=== PATIENT | male | born 1960 | race Caucasian/White ===

== ENCOUNTER → 2017-05-26 | Outpatient (CLI) | payer OTHER ==
[~2017-05-26] MED LIST: ASPI-589 PO; ATOR-24 PO; BENA-3 PO; GEMF600T3 PO; MULT-506 PO
[2017-05-26 14:24] LABS: ALBUMIN 4.8 gm/dl (3.4-5.0); ALT/SGPT 78 U/L (12-78); BLOOD UREA NITROGEN 14 mg/dl (7-18); CALCIUM 10.1 mg/dl (8.5-10.1); CARBON DIOXIDE 30 mmol/L (21-32); CREATININE 1.31 mg/dl (0.60-1.40); GLUCOSE 102 mg/dl (70-99); POTASSIUM 3.7 mmol/L (3.5-5.1); SODIUM 136 mmol/L (136-145)
[2017-05-26 14:31] LABS: ALKALINE PHOSPHATASE 118 U/L (45-117); AST/SGOT 37 U/L (15-37); TOTAL PROTEIN 8.9 gm/dl (6.4-8.2)
== END | disposition home or self-care (01) ==
LOC: C.LABBC 11:53
PROVIDERS: ATTEND Physician Assistant Medical
DX: E78.5 Hyperlipidemia, unspecified (principal); I10 Essential (primary) hypertension; Z11.59 Encounter for screening for other viral diseases

== ENCOUNTER → 2017-07-14 | Outpatient (CLI) | payer OTHER ==
[2017-07-14 15:02] LABS: ALBUMIN 4.3 gm/dl (3.4-5.0); ALT/SGPT 44 U/L (12-78); AST/SGOT 24 U/L (15-37); BLOOD UREA NITROGEN 18 mg/dl (7-18); CALCIUM 9.2 mg/dl (8.5-10.1); CARBON DIOXIDE 29 mmol/L (21-32); CREATININE 1.44 mg/dl (0.60-1.40); GLUCOSE 96 mg/dl (70-99); SODIUM 139 mmol/L (136-145)
[2017-07-14 15:05] LABS: ALKALINE PHOSPHATASE 103 U/L (45-117); TOTAL PROTEIN 8.2 gm/dl (6.4-8.2)
== END | disposition home or self-care (01) ==
LOC: C.LABBC 09:52
PROVIDERS: ATTEND Physician Assistant Medical
DX: I10 Essential (primary) hypertension (principal)

== ENCOUNTER → 2017-11-03 | Outpatient (CLI) | payer OTHER ==
[~2017-11-03] MED LIST changes: -GEMF600T3 PO; +GEMF600T5 PO
[2017-11-03 11:05] LABS: ALKALINE PHOSPHATASE 109 U/L (45-117); ALT/SGPT 53 U/L (12-78); AST/SGOT 28 U/L (15-37); BLOOD UREA NITROGEN 11 mg/dl (7-18); CALCIUM 9.1 mg/dl (8.5-10.1); CARBON DIOXIDE 26 mmol/L (21-32); CHOLESTEROL 291 mg/dl (0-200); CREATININE 1.31 mg/dl (0.60-1.40); GLUCOSE 105 mg/dl (70-99); POTASSIUM 4.1 mmol/L (3.5-5.1); SODIUM 137 mmol/L (136-145); TOTAL PROTEIN 8.2 gm/dl (6.4-8.2)
[2017-11-03 12:37] LABS: HEMOGLOBIN A1C 5.7 % (4.5-5.6)
== END | disposition home or self-care (01) ==
LOC: C.LABBC 08:59
PROVIDERS: ATTEND Physician Assistant Medical
DX: E78.5 Hyperlipidemia, unspecified (principal); R73.9 Hyperglycemia, unspecified

== ENCOUNTER 2023-02-20 11:50 | Inpatient (IN) ==
[2023-02-20 13:15] LABS: Basophils # (auto) 0.08 K/uL (0.00-0.20); Basophils % (auto) 0.5 %; Eosinophils # (auto) 0.02 K/uL (0.00-0.50); Eosinophils % (auto) 0.1 %; Hematocrit (blood only) 45.2 % (42.0-52.0); Hemoglobin 15.1 g/dl (14.0-18.0); Immature Granulocytes # (auto) 0.09 K/uL (0.01-0.20); Immature Granulocytes % (auto) 0.6 %; Lymphocytes % (auto) 13.5 %; Mean Corpuscular Hemoglobin 27.5 pg (25.0-34.0); Mean Corpuscular Hgb Conc 33.4 g/dL (32.0-36.0); Mean Corpuscular Volume 82.2 fL (80.0-100.0); Mean Platelet Volume 10.1 fL (9.4-12.4); Monocytes # (auto) 0.56 K/uL (0.11-0.59); Monocytes % (auto) 3.6 %; Neutrophils # (auto) 12.76 K/uL (1.40-6.50); Neutrophils % (auto) 81.7 %; Platelet Count 185 K/uL (130-400); RDW Coefficient of Variation 13.7 % (11.5-14.5); RDW Standard Deviation 41.4 fL (36.4-46.3); White Blood Count 15.61 K/ul (4.8-10.8)
[2023-02-20 13:27] LABS: Albumin Globulin Ratio 1.1 (0.9-2); BUN Creatinine Ratio 20.5 (10-20); Bilirubin,Total 1.7 mg/dl (0.2-1.0); Calcium 9.4 mg/dl (8.6-10.3); Creatinine Clr Calc Pharmacy 57.7 ml/min; Est GFR (African American) 52.3 ml/min; Est GFR (Non-African American) 45.2 ml/min; Globulin 3.7 gm/dl (2.5-4.0); Potassium 3.1 mmol/L (3.5-5.1); Total Protein 7.7 gm/dl (6.0-8.3)
[2023-02-20 13:57] LABS: Adenovirus PCR Not Detected (NotDetected); Bordetella parapertussis PCR Not Detected (NotDetected); Bordetella pertussis PCR Not Detected (NotDetected); Chlamydia pneumoniae PCR Not Detected (NotDetected); Coronavirus 229E PCR Not Detected (NotDetected); Coronavirus CoV-2 (COVID19)PCR Not Detected (NotDetected); Coronavirus HKU1 PCR Not Detected (NotDetected); Coronavirus NL63 PCR Not Detected (NotDetected); Coronavirus OC43PCR Not Detected (NotDetected); Human Metapneumovirus PCR Not Detected (NotDetected); Influenza A PCR Not Detected (NotDetected); Influenza B PCR Not Detected (NotDetected); Mycoplasma pneumoniae PCR Not Detected (NotDetected); Parainfluenza Virus 1 PCR Not Detected (NotDetected); Parainfluenza Virus 2 PCR Not Detected (NotDetected); Parainfluenza Virus 3 PCR Not Detected (NotDetected); Parainfluenza Virus 4 PCR Not Detected (NotDetected); Respiratory Syncytial VirusPCR Not Detected (NotDetected); Rhinovirus/Enterovirus PCR Not Detected (NotDetected)
--- NOTE | 2023-02-20 14:33 | Emergency Department Note ---
Impression & Plan Transaminitis, Sepsis, CKD (chronic kidney disease), Body aches ED Provider Note NAME: CINDY MORRELL AGE: 62 SEX: M ARRIVES VIA: Walk-In INFORMANT: Patient ED PROVIDER(S): Galdino Fenton MD CHIEF COMPLAINT: Fevers, body aches, nausea vomiting PLAN: Disposition: Admit MEDICAL DECISION MAKING: The patient is a pleasant 62-year-old male with past medical history of hypertension, hyperlipidemia, prediabetes, obesity, and CKD who presents to the emergency department via walk-in accompanied by his , referred from his PCP office for hypotension in the setting of the patient experiencing approximately 11 days of fever, headache, body aches, chills, and nausea. Denies any cough, recent travel, or other sick contacts. Patient had 1 bout of vomiting on Monday. Also been having some diarrhea on and off. He reports urine has been orange in color. He has tried Advil for fever and Pepcid for the nausea. His symptoms have not been getting any better over his last 11 days. Negative home COVID test. Has not been taking his blood pressure meds in over a week. Denies any chest pain or abdominal pain. Denies any tick bites or open wounds on his body. The patient was evaluated in the C pod ante-room following initial testing performed from the C pod Sub-waiting room. On my evaluation, the patient is afebrile however with heart rate in the 100s and blood pressure otherwise stable. He appears clinically dry. Abdomen is benign. EKG without overt acute ischemia. CXR negative for acute cardiopulmonary process per my personal preliminary review/interpretation. WBC 15.6 with neutrophil predominance so no left shift. H/H within normal limits. Platelets 195, within normal limits. Lactic acid is 3.7 however chemistry without metabolic acidosis with bicarbonate of 25. Creatinine is 1.6, increased from recent dose similar to prior range values in setting of CKD. LFTs are elevated with bilirubin 1.7 and direct bilirubin 0.8 with alk phos 244 and AST and ALT 77 and 82, respectively. Lipase marginally above normal at 124. Procalcitonin is elevated at 2.7. Respiratory viral panel/[employer] was negative. Lyme screen was negative. Additional tickborne illness testing performed and is pending including peripheral smear. CT of the ab pelvis was performed and was negative for acute abnormalities per radiology interpretation. Further characterization of elevated bilirubin right upper quadrant ultrasound was ordered and is pending. Patient was provided with 2 L of normal saline with 30 cc/kg of IV fluids deferred given the patient's CKD. Patient does agree with plan for admission. Case was d/w Dr. Yates [facility] hospitalist who will evaluate the patient for admission. Further management including antibiotics per admitting team. Repeat lactic acid improved to 2.0. This patient was managed with the assistance of resident, Dr. Terry. I discussed the case with the resident, examined the patient, and confirm the findings and plan as documented in this note. Triage Nursing notes reviewed and agree them. Prior/external medical records reviewed Vital Signs: reviewed Differential diagnosis: Viral syndrome, otitis, pharyngitis, pneumonia, influenza, meningitis, urinary tract infection, sepsis, bacteremia, as well as other pathologies. ER treatment provided: See below. Diagnostics interpreted by me: ECG: Sinus tachycardia, 102 bpm, no ectopy, no overt ST elevation or depression, QTc 443, cures 96 Cardiac Monitoring: An order for continuous cardiac monitoring was placed and demonstrated Sinus tachycardia, 102 bpm, no ectopy, Laboratory studies: See below Imaging studies: See below Consultation(s): Case was d/w Dr. Yates [facility] hospitalist who will evaluate the patient for admission. HPI: The patient is a pleasant 62-year-old male with past medical history of hypertension, hyperlipidemia, prediabetes, obesity, and CKD who presents to the emergency department via walk-in accompanied by his , referred from his PCP office for hypotension in the setting of the patient experiencing approximately 11 days of fever, headache, body aches, chills, and nausea. Denies any cough, recent travel, or other sick contacts. Patient had 1 bout of vomiting on Monday. Also been having some diarrhea on and off. He reports urine has been orange in color. He has tried Advil for fever and Pepcid for the nausea. His symptoms have not been getting any better over his last 11 days. Negative home COVID test. Has not been taking his blood pressure meds in over a week. Denies any chest pain or abdominal pain. Denies any tick bites or open wounds on his body. ROS: See above HPI for pertinent positives & negatives. A total of 10 systems reviewed and were otherwise negative. VITALS:See Below PHYSICAL EXAMINATION: GENERAL: Awake, alert, fatigued-appearing, in no distress HENT: Normocephalic, atraumatic. Oropharynx with dry mucous membranes and otherwise unremarkable. EYES: Normal conjunctiva. Sclera non-icteric. NECK: Supple. No nuchal rigidity. FROM. No JVD. RESPIRATORY: Clear to auscultation. CARDIAC: Tachycardic rate, normal rhythm. Extremities warm and well perfused. Pulses equal. ABDOMEN: Soft, non-distended. No tenderness to palpation. No rebound or guarding. No masses. RECTAL: Deferred. MUSCULOSKELETAL: Chest examination reveals no tenderness. The back is symmetrical on inspection without obvious abnormality. There is no CVA tenderness to palpation. No joint edema. LOWER EXTREMITIES: Calves are equal size bilaterally and non-tender. No edema. No discoloration. NEURO: Normal sensorium. No sensory or motor deficits noted. SKIN: No rash or jaundice noted. ED COURSE: Critical Care: I have personally spent greater than 35 minutes of critical care time in the direct management of this patient. This includes bedside care, interpretation of diagnostic studies, and testing, discussion with consultants, patient, and family members, and other required patient management activities. This 35 minutes is in excess of all separately billable procedures. Galdino Fenton MD Past Med/Surg History Medical History Encounter for pre-operative examination History of colon polyps Sleep apnea MILD/NO DEVICE Sensorineural hearing loss (SNHL) of both ears CKD (chronic kidney disease) PT DENIES Hypertension Hyperlipidemia Erectile dysfunction Chronic throat clearing Allergic rhinitis Lentigines Surgical History Nausea and vomiting after administration of anesthetic agent History of colonoscopy 03/2021 repeat 5 yrs [place] teeth removed History of myringotomy History of tonsillectomy History of vasectomy History of shoulder surgery RT History of inguinal hernia repair Family History Father Hypertension Hyperlipidemia Type 2 diabetes mellitus Acute myocardial infarction Diabetes Grandmother Acute myocardial infarction Grandfather Cancer Mother Hypertension Brother Hypertension Other No family history of adverse response to anesthesia No family history of bleeding disorder Ovarian cancer Denies family history of Prostate cancer Myocardial infarction Breast cancer Colorectal cancer Stroke Social History Smoking Status: Never smoker Tobacco Type: Smokeless Tobacco (Dip or Chew) Second Hand Exposure: No; Do You Dip or Chew Tobacco: Yes; Hx Alcohol Use: Yes Alcohol type: beer Alcohol Intake Frequency Comment: weekends Hx Substance Use: No Preferred Language: Frisian Communication Ability: Effective Visual Impairment: Partially Limited Hearing Ability: Normal It Program Auditor Required: No Beliefs That Will Affect Care: None marital status: Current Living Situation: Spouse and Family Current Living Situation Comment: AND SON current occupational status: employed current occupation: Works at [employer] How many Children do You have: 2 Other Information That Helps Us Care for You: No Feels Safe at Home: Yes Safety Concerns: Feels Safe At This Time Childhood Exposure to Second-Hand Smoke: Yes caffeine: Yes (two cups of coffee daily ) Dental Care, Regularly: No Physical Activity Frequency: 3-4 Times per Week Physical Activity Frequency Comment: walks couple times a week Seatbelt Use: always Sunscreen Use: No Assistive Devices: None Allergies Allergies Allergy/AdvReac Type Severity Reaction Status Date / Time No Known Drug Allergies Allergy Verified 02/20/23 11:00 Home Meds Home Medications Medication Instructions Recorded Confirmed atorvastatin 40 mg tablet 40 mg PO QAM 08/10/22 02/20/23 Previous Rx's Medication Instructions Recorded benazepril 10 1 tab PO QAM #90 tabs 01/26/23 mg-hydrochlorothiazide 12.5 mg tablet sildenafil 100 mg tablet 100 mg PO ONCE PRN sexual activity 01/26/23 #10 tabs Results & Data (ED) Vital Signs Vital Signs - 24 hr 02/20/23 12:11 02/20/23 14:43 02/20/23 15:10 Temperature 36.6 C 36.6 C Temperature Source Temporal Artery Scan Oral Pulse Rate 102 H 128 H Pulse Rate [Bilateral] 115 H Respiratory Rate 20 30 H Respiratory Effort / Characteristics Non-Labored Respiratory Depth Normal Normal Blood Pressure 109/69 Blood Pressure [Right Arm] 149/97 H Blood Pressure Mean 82 Blood Pressure Mean [Right Arm] 114 Pulse Oximetry 97 98 Oxygen Delivery Method Room Air Room Air Sepsis Recent Fever Within 48 Hours No Sepsis New/Unexplained Change in Mental Status No Sepsis Action Taken by Nursing No Action Required 02/20/23 16:00 Temperature 37.0 C Temperature Source Oral Pulse Rate Pulse Rate [Bilateral] 110 H Respiratory Rate 24 Respiratory Effort / Characteristics Respiratory Depth Normal Blood Pressure Blood Pressure [Right Arm] 144/91 H Blood Pressure Mean Blood Pressure Mean [Right Arm] 108 Pulse Oximetry 97 Oxygen Delivery Method Room Air Sepsis Recent Fever Within 48 Hours Sepsis New/Unexplained Change in Mental Status Sepsis Action Taken by Nursing Laboratory Data Attestation: I reviewed the patient's lab results. 02/20/23 12:44 02/20/23 12:44 Lab Results 02/20/23 02/20/23 02/20/23 Range/Units 12:44 12:52 12:53 WBC 15.61 H (4.8-10.8) K/ul RBC 5.50 (4.70-6.10) M/uL Hgb 15.1 (14.0-18.0) g/dl Hct 45.2 (42.0-52.0) % MCV 82.2 (80.0-100.0) fL MCH 27.5 (25.0-34.0) pg MCHC 33.4 (32.0-36.0) g/dL RDW Std Deviation 41.4 (36.4-46.3) fL RDW Coeff of Usha 13.7 (11.5-14.5) % Plt Count 185 (130-400) K/uL MPV 10.1 (9.4-12.4) fL Immature Gran % (Auto) 0.6 % Neut % (Auto) 81.7 % Lymph % (Auto) 13.5 % Wetzel % (Auto) 3.6 % Eos % (Auto) 0.1 % Baso % (Auto) 0.5 % Neut # (Auto) 12.76 H (1.40-6.50) K/uL Lymph # (Auto) 2.10 (1.20-3.40) K/uL Wetzel # (Auto) 0.56 (0.11-0.59) K/uL Eos # (Auto) 0.02 (0.00-0.50) K/uL Baso # (Auto) 0.08 (0.00-0.20) K/uL Immature Gran # (Auto) 0.09 (0.01-0.20) K/uL ESR (0-20) mm/hr PT 10.8 (9.0-12.0) Seconds INR 1.0 (0.9-1.1) APTT 32.5 H (21.0-31.0) Seconds PTT Ratio 1.2 Sodium 134 L (136-145) mmol/L Potassium 3.1 L (3.5-5.1) mmol/L Chloride 97 L (98-107) mmol/L Carbon Dioxide 25 (21-32) mmol/L Anion Gap 12 H (3-11) BUN 33 H (6-23) mg/dl Creatinine 1.61 H (0.6-1.4) mg/dl Est Cr Clr Drug Dosing 57.7 ml/min Est GFR ( Amer) 52.3 ml/min Est GFR (Non-Af Amer) 45.2 ml/min BUN/Creatinine Ratio 20.5 H (10-20) Glucose 167 H (70-99(Fasting)) mg/dl Lactate (0.4-2.0) mmol/L Calcium 9.4 (8.6-10.3) mg/dl Magnesium (1.7-2.4) mg/dl Total Bilirubin 1.7 H (0.2-1.0) mg/dl Direct Bilirubin 0.8 H (0-0.2) mg/dl AST 77 H (13-39) U/L ALT 82 H (7-52) U/L Alkaline Phosphatase 244 H (34-104) U/L C-Reactive Protein 25.86 H (0-0.5) mg/dl Total Protein 7.7 (6.0-8.3) gm/dl Albumin 4.0 (3.4-5.0) gm/dl Globulin 3.7 (2.5-4.0) gm/dl Albumin/Globulin Ratio 1.1 (0.9-2) Lipase 124 H (11-82) U/L Prostate Specific Ag 0.337 (0-4) ng/ml Procalcitonin 2.73 H (0-0.5) ng/ml Adenovirus (PCR) Not Detected (NotDetected) Anaplasma Smear See Comment Babesia Smear See Comment B. pertussis DNA (PCR) Not Detected (NotDetected) B.parapertussis DNA PCR Not Detected (NotDetected) Lyme Disease IgG Ab Negative (Negative) Lyme Disease IgM Ab Negative (Negative) C. pneumoniae DNA (PCR) Not Detected (NotDetected) Coronavirus OC43 (PCR) Not Detected (NotDetected) Coronavirus HKU1 (PCR) Not Detected (NotDetected) Coronavirus 229E (PCR) Not Detected (NotDetected) SARS-CoV-2 (PCR) Not Detected (NotDetected) Coronavirus NL63 (PCR) Not Detected (NotDetected) Human Metapneumovir PCR Not Detected (NotDetected) Influenza Type A (PCR) Not Detected (NotDetected) Influenza Type B (PCR) Not Detected (NotDetected) M. pneumoniae (PCR) Not Detected (NotDetected) Parainfluenza 1 (PCR) Not Detected (NotDetected) Parainfluenza 2 (PCR) Not Detected (NotDetected) Parainfluenza 3 (PCR) Not Detected (NotDetected) Parainfluenza 4 (PCR) Not Detected (NotDetected) RSV (PCR) Not Detected (NotDetected) Entero/Rhino (PCR) Not Detected (NotDetected) 02/20/23 02/20/23 Range/Units 12:54 15:12 WBC (4.8-10.8) K/ul RBC (4.70-6.10) M/uL Hgb (14.0-18.0) g/dl Hct (42.0-52.0) % MCV (80.0-100.0) fL MCH (25.0-34.0) pg MCHC (32.0-36.0) g/dL RDW Std Deviation (36.4-46.3) fL RDW Coeff of Usha (11.5-14.5) % Plt Count (130-400) K/uL MPV (9.4-12.4) fL Immature Gran % (Auto) % Neut % (Auto) % Lymph % (Auto) % Wetzel % (Auto) % Eos % (Auto) % Baso % (Auto) % Neut # (Auto) (1.40-6.50) K/uL Lymph # (Auto) (1.20-3.40) K/uL Wetzel # (Auto) (0.11-0.59) K/uL Eos # (Auto) (0.00-0.50) K/uL Baso # (Auto) (0.00-0.20) K/uL Immature Gran # (Auto) (0.01-0.20) K/uL ESR 71 H (0-20) mm/hr PT (9.0-12.0) Seconds INR (0.9-1.1) APTT (21.0-31.0) Seconds PTT Ratio Sodium (136-145) mmol/L Potassium (3.5-5.1) mmol/L Chloride (98-107) mmol/L Carbon Dioxide (21-32) mmol/L Anion Gap (3-11) BUN (6-23) mg/dl Creatinine (0.6-1.4) mg/dl Est Cr Clr Drug Dosing ml/min Est GFR ( Amer) ml/min Est GFR (Non-Af Amer) ml/min BUN/Creatinine Ratio (10-20) Glucose (70-99(Fasting)) mg/dl Lactate 3.7 H* (0.4-2.0) mmol/L Calcium (8.6-10.3) mg/dl Magnesium 2.0 (1.7-2.4) mg/dl Total Bilirubin (0.2-1.0) mg/dl Direct Bilirubin (0-0.2) mg/dl AST (13-39) U/L ALT (7-52) U/L Alkaline Phosphatase (34-104) U/L C-Reactive Protein (0-0.5) mg/dl Total Protein (6.0-8.3) gm/dl Albumin (3.4-5.0) gm/dl Globulin (2.5-4.0) gm/dl Albumin/Globulin Ratio (0.9-2) Lipase (11-82) U/L Prostate Specific Ag (0-4) ng/ml Procalcitonin (0-0.5) ng/ml Adenovirus (PCR) (NotDetected) Anaplasma Smear Babesia Smear B. pertussis DNA (PCR) (NotDetected) B.parapertussis DNA PCR (NotDetected) Lyme Disease IgG Ab (Negative) Lyme Disease IgM Ab (Negative) C. pneumoniae DNA (PCR) (NotDetected) Coronavirus OC43 (PCR) (NotDetected) Coronavirus HKU1 (PCR) (NotDetected) Coronavirus 229E (PCR) (NotDetected) SARS-CoV-2 (PCR) (NotDetected) Coronavirus NL63 (PCR) (NotDetected) Human Metapneumovir PCR (NotDetected) Influenza Type A (PCR) (NotDetected) Influenza Type B (PCR) (NotDetected) M. pneumoniae (PCR) (NotDetected) Parainfluenza 1 (PCR) (NotDetected) Parainfluenza 2 (PCR) (NotDetected) Parainfluenza 3 (PCR) (NotDetected) Parainfluenza 4 (PCR) (NotDetected) RSV (PCR) (NotDetected) Entero/Rhino (PCR) (NotDetected) Administered Medications Enoxaparin Sodium (Enoxaparin Inj 40 Mg/0.4 Ml Syr) 40 mg SQ Q24H MICHELLE Stop: 03/22/23 20:59 Last Admin: 02/20/23 22:46 Dose: 40 mg Documented By: BELGICA Lactated Ringer's (Lr) 1,000 mls @ 125 mls/hr IV .Q8H MICHELLE Stop: 02/21/23 12:14 Last Admin: 02/20/23 22:16 Dose: 125 mls/hr Documented By: BELGICA Doxycycline Hyclate 100 mg/ (Dextrose) 100 mls @ 50 mls/hr IV BID MICHELLE Stop: 02/22/23 20:59 Last Admin: 02/20/23 22:39 Dose: 50 mls/hr Documented By: BELGICA Discontinued Medications Sodium Chloride (Nss) 1,000 mls @ 999 mls/hr IV .Q1H1M MICHELLE Stop: 02/20/23 16:45 Last Infusion: 02/20/23 16:55 Dose: Infused Documented By: Admin: 02/20/23 15:54 Dose: 999 mls/hr Documented By: Infusion: 02/20/23 15:54 Dose: Infused Documented By: Admin: 02/20/23 15:54 Dose: 999 mls/hr Documented By: BELGICA Famotidine (Pepcid 20mg Iv Push) 20 mg in 5 mls @ 2.5 mls/min IV NOW STA Stop: 02/20/23 14:41 Last Admin: 02/20/23 16:00 Dose: 2.5 mls/min Documented By: BELGICA Piperacillin Sod/Tazobactam Sod (Zosyn) 4.5 gm in 100 mls @ 200 mls/hr IV NOW ONE Stop: 02/20/23 17:07 Last Infusion: 02/20/23 20:03 Dose: Infused Documented By: Admin: 02/20/23 17:33 Dose: 200 mls/hr Documented By: [facility] Lactated Ringer's (Lr) 1,000 mls @ 999 mls/hr IV .Q1H1M ONE Stop: 02/20/23 18:37 Last Infusion: 02/20/23 20:48 Dose: Infused Documented By: [facility] Admin: 02/20/23 19:14 Dose: 999 mls/hr Documented By: [facility] Potassium Chloride (K Fredy / Wtr) 10 meq in 100 mls @ 100 mls/hr IV Q1H MICHELLE Stop: 02/20/23 20:29 Last Admin: 02/20/23 21:42 Dose: 100 mls/hr Documented By: Infusion: 02/20/23 21:41 Dose: Infused Documented By: [facility] Admin: 02/20/23 20:48 Dose: 100 mls/hr Documented By: [facility] Ioversol (Optiray 320 500ml) 94 ml IV ONCE ONE Stop: 02/20/23 15:18 Last Admin: 02/20/23 15:17 Dose: 94 ml Documented By: [facility] Ondansetron HCl (Ondansetron Inj 2 Mg/Ml 2 Ml Vial) 4 mg IV NOW STA Stop: 02/20/23 14:41 Last Admin: 02/20/23 16:01 Dose: 4 mg Documented By: [facility] Imaging Data Radiologist's Impression: Abdomen/Pelvis CT 02/20/23 14:38 CT abd pelvis IV con only CLINICAL HISTORY: fever, upper abdominal pain TECHNIQUE: Helical axial images of the abdomen and pelvis were obtained and displayed. Automated dose lowering techniques and/or adjustment according to patient size were utilized for this exam. This exam was performed with intravenous contrast. CT DOSE: 1589.91 mGy.cm COMPARISON: None available at the time of this dictation. FINDINGS: Lower chest: No acute abnormality. Liver: Unremarkable. No focal lesions are seen. Gallbladder and biliary tree: No calcified gallstones. Normal caliber wall. No intra- or extrahepatic biliary ductal dilation. Pancreas: Fatty replacement of the pancreas is seen. Spleen: Unremarkable. Adrenals: Unremarkable. Kidneys and ureters: Perinephric stranding is noted bilaterally. Bladder: Unremarkable. Reproductive organs: Unremarkable. Bowel: Diverticulosis is seen without diverticulitis. The appendix is normal. Lymph nodes Retroperitoneal: Unremarkable. Pelvic: Unremarkable. Mesenteric: Unremarkable. Peritoneum: Normal. Vessels: Unremarkable. Abdominal wall: Right fat-containing inguinal hernia. Bones: Degenerative changes in the visualized spine. IMPRESSION: No acute abnormalities. Diverticulosis without diverticulitis. The appendix is normal. ACT 112: Negative or not required by law. Electronically signed by: Jose F Valadez M.D. 02/20/2023 3:35 PM Chest X-Ray 02/20/23 14:38 SINGLE VIEW CHEST CLINICAL HISTORY: Vomiting. Cough and fever. FINDINGS: 2 AP, portable, upright chest radiographs are compared to study dated 05/03/2019. The cardiomediastinal silhouette is unremarkable. There is mild bibasilar atelectasis. The lungs and pleural spaces are otherwise clear. No pneumothorax is seen. The bony thorax is grossly intact. IMPRESSION: No active disease in the chest. ACT 112: Negative or not required by law. Electronically signed by: Tomás Cummings M.D. 02/20/2023 3:14 PM Liver Ultrasound 02/20/23 16:02 ULTRASOUND RIGHT UPPER QUADRANT ABDOMEN CLINICAL HISTORY: Elevated bilirubin. Fever. COMPARISON STUDY: Abdominal CT performed the same day 02/20/2023. TECHNIQUE: Real-time, grayscale, and color flow sonography of the right upper quadrant of the abdomen was performed. Images are reviewed in the transverse and longitudinal planes. FINDINGS: Liver: The liver is mildly enlarged and demonstrates heterogeneously increased echotexture indicating steatosis. There is no intrahepatic biliary ductal dilatation. The main portal vein is patent. Gallbladder: The gallbladder is normal in appearance. No gallstones are identified. The gallbladder wall appears mildly thickened, measuring up to 3-4 mm. No shadowing gallstones are identified. There is no pericholecystic fluid. A sonographic Millan's sign is reportedly absent. The common bile duct measures up to 0.4 cm in diameter. Pancreas: Visualized portions of the pancreatic head and body are normal in appearance. The splenic vein is patent. Right kidney: Survey images of the right kidney demonstrate normal size and echotexture. There is no hydronephrosis. Ascites: None. IMPRESSION: 1. No acute sonographic abnormality is identified in the right upper quadrant. No gallstones are seen. 2. Hepatomegaly and hepatic steatosis. ACT 112: Negative or not required by law. Electronically signed by: Tomás Cummings M.D. 02/20/2023 6:18 PM Discharge Plan Visit Data Chief Complaint: Flu Like Symptoms Stated Complaint: FEVER, CHILLS, HEADACHES, DEHYDRATION, HYPOTENSION ED Provider: Galdino Fenton ED Midlevel Provider: Tomás Terry Discharge Problem: Transaminitis, Sepsis, CKD (chronic kidney disease), Body aches Patient Disposition: Admitted As Inpatient Discharge Instructions Interventions: ED Discharge Assessment Last Done: 02/20/23 18:58 Discharge Problem: Sepsis Qualifiers: Sepsis type: sepsis due to unspecified organism Sepsis acute organ dysfunction status: unspecified Qualified Code(s): A41.9 - Sepsis, unspecified organism CKD (chronic kidney disease) Qualifiers: Chronic kidney disease stage: unspecified stage Qualified Code(s): N18.9 - Chronic kidney disease, unspecified
[2023-02-20] MEDS ORDERED: ONDANSETRON INJ 2 MG/ML 2 ML VIAL IV STA (14:40)
[2023-02-20] MEDS ORDERED: FAMOTIDINE 20MG IV PUSH 20 MG/5 ML SYR IV STA (14:40)
[2023-02-20 15:16] LABS: Bilirubin Direct 0.8 mg/dl (0-0.2)
--- NOTE | 2023-02-20 15:16 | XRay Report ---
SINGLE VIEW CHEST CLINICAL HISTORY: Vomiting. Cough and fever. FINDINGS: 2 AP, portable, upright chest radiographs are compared to study dated 05/03/2019. The cardio mediastinal silhouette is unremarkable. There is mild bibasilar atelectasis. The lungs and pleural sp aces are otherwise clear. No pneumothorax is seen. The bony thorax is grossly intact. IMPRESSION: No active disease in the chest. ACT 112: Negative or not required by law. Electronically signed by: Tomás Cummings M.D. 02/20/2023 3:14 PM
[2023-02-20] MEDS ORDERED: OPTIRAY 320 500ml IV ONE (15:17)
--- NOTE | 2023-02-20 15:36 | CT Scan Report ---
CT abd pelvis IV con only CLINICAL HISTORY: fever, upper abdominal pain TECHNIQUE: Helical axial images of the abdomen and pelvis were obtained and displayed. Automated dose lowering techniques and/or adjustment according to patient size were utilized for this exam. This e xam was performed with intravenous contrast. CT DOSE: 1589.91 mGy.cm COMPARISON: None available at the time of this dictation. FINDINGS: Lower chest: No acute abnormality. Liver: Unremarkable. No focal lesions are seen. Gallbladder and biliary tree: No calcified gallstones. Normal caliber wall. No intra- or extrahepatic biliary ductal dilation. Pancreas: Fatty replacement of the pancreas is seen. Spleen: Unremarkable. Adrenals: Unremarkable. Kidneys and ureters: Perinephric stranding is noted bilaterally. Bladder: Unremarkable. Reproductive organs: Unremarkable. Bowel: Diverticulosis is seen without diverticulitis. The appendix is normal. Lymph nodes Retroperitoneal: Unremarkable. Pelvic: Unremarkable. Mesenteric: Unremarkable. Peritoneum: Normal. Vessels: Unremarkable. Abdominal wall: Right fat-containing inguinal hernia. Bones: Degenerative changes in the visualized spine. IMPRESSION: No acute abnormalities. Diverticulosis without diverticulitis. The appendix is normal. ACT 112: Negative or not required by law. Electronically signed by: Jose F Valadez M.D. 02/20/2023 3:35 PM
--- NOTE | 2023-02-20 15:40 | Electrocardiogram Report ---
Test Reason : Blood Pressure : / mmHG Vent. Rate : 102 BPM Atrial Rate : 102 BPM P-R Int : 142 ms QRS Dur : 096 ms QT Int : 348 ms P-R-T Axes : 022 -09 050 degrees QTc Int : 453 ms Sinus tachycardia Cannot rule out Anterior infarct , age undetermined Abnormal ECG When compared with ECG of 05-AUG-2022 10:07, No significant change was found Confirmed by Andrey Palmer ([id number]) on 02/20/2023 3:39:56 PM Referred By: REFERRED SELF Confirmed By:Andrey Palmer
[2023-02-20] MEDS: SODIUM CHLORIDE 0.9% 1,000 ML IV SCH (15:54)
[2023-02-20 16:07] LABS: Procalcitonin 2.73 ng/ml (0-0.5)
[2023-02-20 16:13] LABS: Lyme Ab IgG w/WB Rflx Negative (Negative); Lyme Ab IgM w/WB Rflx Negative (Negative)
--- NOTE | 2023-02-20 16:33 | History & Physical Report ---
Date of Service February 20, 2023 Assessment & Plan (1) Body aches: Plan: Intermittent fever, chills, body aches x 11 days Patient has been taking Tylenol, ibuprofen at home without relief Sent in by PCP for hypotension, dehydration, and concern for sepsis Leukocytosis at 15.61 with a neutrophil predominance Elevated procalcitonin at 2.73 Elevated CRP at 25.86 Elevated ESR at 71 Tickborne panel ordered, pending Stool cultures ordered, pending Viral panel negative Continue Zosyn 4.5g IV q8h A.m. CBC, BMP, CRP (2) Nausea & vomiting: Plan: CT of the abdomen/pelvis revealed no acute abnormalities Last episode of vomiting was on Monday morning 02/18 Zofran 4 mg IV q6h as needed for nausea Famotidine 20 mg IV QAM (3) Sepsis: Plan: Leukocytosis, HR at 110 bpm, intermittent fevers, unknown source Lactate elevated at 3.7 Procalcitonin elevated at 2.73 PSA WNL 2000 mL given in the ED Additional 1000 mL LR to be given (4) Hypertension: Plan: Continue benazepril-HCTZ (5) Fever: Plan: Acetaminophen 650 mg p.o. q6h as needed for fever (6) Hypokalemia: Plan: K low at 3.1 Krider 10mEq x 2 given in the ED Magnesium WNL at 2.0 Monitor a.m. BMP (7) Hyperlipidemia: Plan: Continue atorvastatin (8) Elevated transaminase level: Plan: AST 77, ALT 82, alk phos 244 on arrival Liver ultrasound revealed hepatomegaly, and hepatic steatosis, but no gallstones or sonographic abnormalities Abdomen/pelvic CT without liver/gallbladder abnormalities Plan [facility] Full liquid diet and then advance to regular diet as tolerated VTE PPx: Lovenox History of Present Illness Chief Complaint: Flu-like symptoms Primary Care Provider: DO Ovidio Junior is a 62-year-old male with PMH of HTN, HLD, obesity, prediabetes, and CKD. He presented for intermittent fever, chills, body aches, vomiting, diarrhea, and fatigue that has been worsening over the past 11 days. He was sent in from his PCP for low blood pressure and concern for sepsis; his BP was 91/62 on arrival. Patient reports that he has been having fevers twice daily; taking Tylenol and ibuprofen 800 mg 3 times daily. He reports generalized body aches, and says he has "never felt so bad in his life". He also endorses headache, head pressure, and 1 episode of vomiting on Monday morning 02/18; he has been nauseous ever since. Patient has not been eating or drinking much. No recent travel. Works from home. No sick contacts. No tick bites that he has noticed. He endorses diarrhea over the past several days; no recent antibiotic use; he reports his stool has a soft consistency, but is not liquid-y. Patient has not been taking his normal medications; has not taken BP medication in over a week. He endorses chewing tobacco, but denies smoking, and recreational drug use. He endorses minimal alcohol use; occasionally drinks socially, 2 drinks on the weekends. He exhibits hypertension at 144/91, and mild tachycardia at 110 bpm at time of admission; vitals otherwise stable. ED course: NSS 1000 mL Famotidine 20 mg IV Zofran 4 mg IV ROS: Patient endorses intermittent fevers (2x per day), chills, night-sweats, trouble sleeping, MANCINI, dizziness, lightheadedness, nausea, one episode of vomiting on 02/18, diarrhea, Patient denies sore throat, chest pain, SOB, rashes, burning with urination, or numbness/tingling in the legs. Allergies Allergy/AdvReac Type Severity Reaction Status Date / Time No Known Drug Allergies Allergy Verified 02/20/23 11:00 Home Medications Medication Instructions Recorded Confirmed Type atorvastatin 40 mg tablet 40 mg PO QAM 08/10/22 02/20/23 History benazepril 10 1 tab PO QAM #90 tabs 01/26/23 02/20/23 Rx mg-hydrochlorothiazide 12.5 mg tablet sildenafil 100 mg tablet 100 mg PO ONCE PRN sexual activity 01/26/23 02/20/23 Rx #10 tabs Past Med/Surg History Medical History Encounter for pre-operative examination History of colon polyps Sleep apnea MILD/NO DEVICE Sensorineural hearing loss (SNHL) of both ears CKD (chronic kidney disease) PT DENIES Hypertension Hyperlipidemia Erectile dysfunction Chronic throat clearing Allergic rhinitis Lentigines Surgical History Nausea and vomiting after administration of anesthetic agent History of colonoscopy 03/2021 repeat 5 yrs Verner teeth removed History of myringotomy History of tonsillectomy History of vasectomy History of shoulder surgery RT History of inguinal hernia repair Family History Father Hypertension Hyperlipidemia Type 2 diabetes mellitus Acute myocardial infarction Diabetes Grandmother Acute myocardial infarction Grandfather Cancer Mother Hypertension Brother Hypertension Other No family history of adverse response to anesthesia No family history of bleeding disorder Ovarian cancer Denies family history of Prostate cancer Myocardial infarction Breast cancer Colorectal cancer Stroke Social History Smoking Status: Never smoker Tobacco Type: Smokeless Tobacco (Dip or Chew) Second Hand Exposure: No; Do You Dip or Chew Tobacco: Yes; Hx Alcohol Use: Yes Alcohol type: beer Alcohol Intake Frequency Comment: weekends Hx Substance Use: No Preferred Language: Macedonian Communication Ability: Effective Visual Impairment: Partially Limited Hearing Ability: Normal Culvert Installer Required: No Beliefs That Will Affect Care: None marital status: Current Living Situation: Spouse and Family Current Living Situation Comment: AND SON current occupational status: employed current occupation: Works at [employer] How many Children do You have: 2 Other Information That Helps Us Care for You: No Feels Safe at Home: Yes Safety Concerns: Feels Safe At This Time Childhood Exposure to Second-Hand Smoke: Yes caffeine: Yes (two cups of coffee daily ) Dental Care, Regularly: No Physical Activity Frequency: 3-4 Times per Week Physical Activity Frequency Comment: walks couple times a week Seatbelt Use: always Sunscreen Use: No Assistive Devices: None Review of Systems Review of Systems: See HPI above Physical Exam Physical Exam: General: Patient exhibits chills, and is diaphoretic in bed; non-toxic appearing; cooperative HEENT: normocephalic, atraumatic; no scleral icterus; PERRLA w/ EOMs intact; moist mucus membrane; vision and hearing grossly intact Neck: supple; no lymphadenopathy; trachea midline Skin: warm to touch; moist without signs of tenting; no cyanosis; no signs of rashes, bruising, lesions, or erythema noted CV: chest wall NTP; RRR; S1/S2 normal; no murmurs/rubs/gallops; pulses intact and symmetric at radial, DP, and PT Lungs: no acute respiratory distress; symmetrical chest wall expansion; clear breath sounds across all lung herrera w/o adventitious sounds; no wheezing ABD: Soft, NTP; BS present; no rebound/guarding; no ascites; no distention; no rashes on the abdomen MSK: no tics or fasciculations; no edema noted in the LEs b/l Neuro: A&Ox3; normal mood and affect; fluent speech; no focal deficits; sensation grossly intact Results & Data Results & Data Vital Signs (Past 12 Hours) Vital Signs Temp Pulse Pulse Resp BP BP Pulse Ox 02/20/23 15:10 128 H 02/20/23 14:43 36.6 C 115 H 30 H 149/97 H 98 02/20/23 12:11 36.6 C 102 H 20 109/69 97 O2 Del Method 02/20/23 15:10 02/20/23 14:43 Room Air 02/20/23 12:11 Room Air Laboratory Results Abnormal lab results 02/20/23 02/20/23 02/20/23 Range/Units 12:44 12:52 15:12 WBC 15.61 H (4.8-10.8) K/ul Neut # (Auto) 12.76 H (1.40-6.50) K/uL Sodium 134 L (136-145) mmol/L Potassium 3.1 L (3.5-5.1) mmol/L Chloride 97 L (98-107) mmol/L Anion Gap 12 H (3-11) BUN 33 H (6-23) mg/dl Creatinine 1.61 H (0.6-1.4) mg/dl BUN/Creatinine Ratio 20.5 H (10-20) Glucose 167 H (70-99(Fasting)) mg/dl Lactate 3.7 H* (0.4-2.0) mmol/L Total Bilirubin 1.7 H (0.2-1.0) mg/dl Direct Bilirubin 0.8 H (0-0.2) mg/dl AST 77 H (13-39) U/L ALT 82 H (7-52) U/L Alkaline Phosphatase 244 H (34-104) U/L Lipase 124 H (11-82) U/L Procalcitonin 2.73 H (0-0.5) ng/ml Diagnostic Findings Abdomen/Pelvis CT 02/20/23 14:38 CT abd pelvis IV con only CLINICAL HISTORY: fever, upper abdominal pain TECHNIQUE: Helical axial images of the abdomen and pelvis were obtained and displayed. Automated dose lowering techniques and/or adjustment according to patient size were utilized for this exam. This exam was performed with intravenous contrast. CT DOSE: 1589.91 mGy.cm COMPARISON: None available at the time of this dictation. FINDINGS: Lower chest: No acute abnormality. Liver: Unremarkable. No focal lesions are seen. Gallbladder and biliary tree: No calcified gallstones. Normal caliber wall. No intra- or extrahepatic biliary ductal dilation. Pancreas: Fatty replacement of the pancreas is seen. Spleen: Unremarkable. Adrenals: Unremarkable. Kidneys and ureters: Perinephric stranding is noted bilaterally. Bladder: Unremarkable. Reproductive organs: Unremarkable. Bowel: Diverticulosis is seen without diverticulitis. The appendix is normal. Lymph nodes Retroperitoneal: Unremarkable. Pelvic: Unremarkable. Mesenteric: Unremarkable. Peritoneum: Normal. Vessels: Unremarkable. Abdominal wall: Right fat-containing inguinal hernia. Bones: Degenerative changes in the visualized spine. IMPRESSION: No acute abnormalities. Diverticulosis without diverticulitis. The appendix is normal. ACT 112: Negative or not required by law. Electronically signed by: Jose F Valadez M.D. 02/20/2023 3:35 PM Chest X-Ray 02/20/23 14:38 SINGLE VIEW CHEST CLINICAL HISTORY: Vomiting. Cough and fever. FINDINGS: 2 AP, portable, upright chest radiographs are compared to study dated 05/03/2019. The cardiomediastinal silhouette is unremarkable. There is mild bibasilar atelectasis. The lungs and pleural spaces are otherwise clear. No pneumothorax is seen. The bony thorax is grossly intact. IMPRESSION: No active disease in the chest. ACT 112: Negative or not required by law. Electronically signed by: Tomás Cummings M.D. 02/20/2023 3:14 PM Code Status & VTE Plan Code Status Full code VTE Prophylaxis Plan VTE Prophylaxis will be ordered: Yes Supervising Physician Co-Signing Physician Notes I personally saw and examined the patient. I independently reviewed the labs, EKG, imaging, problem list, medication list, past medical history and family history. I verified all morton points and agree with Wade Palomares PA-C with the following exceptions and/or additions: 62 year old male presents to the ER with generalized myalgias, fever, chills. No nasal congestion, sinus pain, cough, shortness of breath, chest pain, abdominal pain, urinary symptoms. A couple of episode of loose stool and vomiting in the last week. 11 days of symptoms. No known tick exposure. No neck pain or confusion. Main symptoms o O/E A&Ox3, HS increased rate, regular rhythm, no murmurs, Chest CTAB, Abdo SNT, no CVA tenderness A/P Sepsis - elevated WBC and procalcitonin but no definitive source. Empiric antibiotics with Zosyn. Will also add doxycycline for tick borne illness. Then if not improving in 48 hours and blood cultures negative consider alternative etiology such as autoimmune disease +/- ID consult. PG Care Time/CCT Total # of Minutes Spent Total Time Spent with Patient: Total time spent is greater than 50% in coordination of care (as documented) at patient's floor/unit and/or counseling patient: Coding [place] [address] INT INP/OBS CARE 3/75MIN Patient Type Established Medical Decision Making High Complexity Diagnoses Body aches R52 Nausea & vomiting R11.2 Sepsis A41.9 Hypertension I10 Fever R50.9 Hypokalemia E87.6 Hyperlipidemia E78.5 Elevated transaminase level R74.01
[2023-02-20] MEDS ORDERED: PIPERACILLIN/TAZOBACTAM 4.5 GM/100 ML BAG IV ONE (16:38)
[2023-02-20 17:04] LABS: C Reactive Protein 25.86 mg/dl (0-0.5)
[2023-02-20 17:13] LABS: Partial Thromboplastin Ratio 1.2; Partial Thromboplastin Time 32.5 Seconds (21.0-31.0); Prothrombin Time 10.8 Seconds (9.0-12.0)
[2023-02-20] MEDS ORDERED: LACTATED RINGER'S 1,000 ML IV ONE (17:37)
[2023-02-20] MEDS ORDERED: LACTATED RINGER'S 1,000 ML IV SCH (17:45)
[2023-02-20 17:56] LABS: Appearance Urine Clear (Clear); Bacteria Urine Automated Negative (Negative); Blood Urine 1+ (Negative); Color Urine Dark Yellow; Glucose Urine UA Negative (Negative); Ketones Urine Negative (Negative); Leukocyte Esterase Urine Negative (Negative); Nitrite Urine Negative (Negative); Protein Urine 2+ (Negative); RBC Urine Automated 0-4 /hpf (0-4); Specific Gravity Urine > 1.045 (1.000-1.030); Urobilinogen Urine Positive (Negative)
[2023-02-20 18:02] LABS: Bilirubin Urine 1+ (Negative)
--- NOTE | 2023-02-20 18:21 | Ultrasound Report ---
ULTRASOUND RIGHT UPPER QUADRANT ABDOMEN CLINICAL HISTORY: Elevated bilirubin. Fever. COMPARISON STUDY: Abdominal CT performed the same day 02/20/2023. TECHNIQUE: Real-time, grayscale, and color flow sonography of the right upper quadrant of the abdomen was performed. Images are reviewed in the transverse and longitudinal planes. FINDINGS: Liver: The liver is mildly enlarged and demonstrates heterogeneously increased echotexture indicating steatosis. There is no intrahepatic biliary ductal dilatation. The main portal vein is patent. Gallbladder: The gallbladder is normal in appearance. No gallstones are identified. The gallbladder w all appears mildly thickened, measuring up to 3-4 mm. No shadowing gallstones are identified. There i s no pericholecystic fluid. A sonographic Millan's sign is reportedly absent. The common bile duct me asures up to 0.4 cm in diameter. Pancreas: Visualized portions of the pancreatic head and body are normal in appearance. The splenic v ein is patent. Right kidney: Survey images of the right kidney demonstrate normal size and echotexture. There is no hydronephrosis. Ascites: None. IMPRESSION: 1. No acute sonographic abnormality is identified in the right upper quadrant. No gallstones are seen . 2. Hepatomegaly and hepatic steatosis. ACT 112: Negative or not required by law. Electronically signed by: Tomás Cummings M.D. 02/20/2023 6:18 PM
[2023-02-20] MEDS ORDERED: ONDANSETRON INJ 2 MG/ML 2 ML VIAL IV PRN (20:00)
[2023-02-20] MEDS: POTASSIUM CHLORIDE / WTR 10 MEQ/100 ML PLCT IV SCH ×2 (20:48→21:42)
[2023-02-20] MEDS: LACTATED RINGER'S 1,000 ML IV SCH (22:16)
[2023-02-20] MEDS: DOXYCYCLINE HYCLATE 100 MG in DEXTROSE 5% MINI-B 100 ML IV SCH (22:39)
[2023-02-20] MEDS: ENOXAPARIN INJ 40 MG/0.4 ML SYR SQ SCH (22:46)
[2023-02-21] MEDS: PIPERACILLIN/TAZOBACTAM 4.5 GM in DEXTROSE 5% MINI-B 100 ML IV SCH ×3 (01:34→16:09)
[2023-02-21] MEDS: ACETAMINOPHEN 325 MG TAB PO PRN ×2 (02:56→20:57)
[2023-02-21] MEDS: LACTATED RINGER'S 1,000 ML IV SCH (06:18)
[2023-02-21 06:55] LABS: Hematocrit (blood only) 32.6 % (42.0-52.0); Hemoglobin 11.1 g/dl (14.0-18.0); Mean Corpuscular Hemoglobin 27.9 pg (25.0-34.0); Mean Corpuscular Volume 81.9 fL (80.0-100.0); Mean Platelet Volume 9.8 fL (9.4-12.4); Platelet Count 174 K/uL (130-400); RDW Standard Deviation 41.9 fL (36.4-46.3); Red Blood Count 3.98 M/uL (4.70-6.10); White Blood Count 13.32 K/ul (4.8-10.8)
[2023-02-21 07:17] LABS: BUN Creatinine Ratio 16.8 (10-20); C Reactive Protein 14.19 mg/dl (0-0.5); Calcium 7.9 mg/dl (8.6-10.3); Creatinine Clr Calc Pharmacy 73.2 ml/min; Est GFR (African American) 67.2 ml/min; Est GFR (Non-African American) 57.9 ml/min; Potassium 3.5 mmol/L (3.5-5.1)
[2023-02-21 07:27] LABS: Basophils # (auto) 0.05 K/uL (0.00-0.20); Basophils % (auto) 0.4 %; Dohle Bodies 1+; Eosinophils # (auto) 0.01 K/uL (0.00-0.50); Eosinophils % (auto) 0.1 %; Immature Granulocytes % (auto) 0.8 %; Lymphocytes # (auto) 3.12 K/uL (1.20-3.40); Lymphocytes % (auto) 23.4 %; Neutrophils # (auto) 9.24 K/uL (1.40-6.50); Neutrophils % (auto) 69.3 %
[2023-02-21 08:54] LABS: Albumin Level 2.9 gm/dl (3.4-5.0); Bilirubin Direct 0.5 mg/dl (0-0.2); Bilirubin,Total 1.2 mg/dl (0.2-1.0); Total Protein 5.5 gm/dl (6.0-8.3)
[2023-02-21] MEDS ORDERED: BENAZEPRIL HYDROCHLOROTHIAZIDE PO SCH (09:00)
[2023-02-21] MEDS ORDERED: hydroCHLOROthiazide 25 MG TAB PO SCH (09:00)
[2023-02-21] MEDS ORDERED: ENALAPRIL MALEATE 10 MG TAB PO SCH (09:00)
[2023-02-21] MEDS: DOXYCYCLINE HYCLATE 100 MG in DEXTROSE 5% MINI-B 100 ML IV SCH ×2 (09:35→20:57)
[2023-02-21] MEDS: FAMOTIDINE 20 MG in SYRINGE 3 ML IV SCH (09:54)
[2023-02-21] MEDS ORDERED: KETOROLAC 30 MG/ML VIAL IV PRN (15:05)
[2023-02-21] MEDS: ADVANCED PROBIOTIC 1250 MG CAPSULE PO SCH (16:05)
[2023-02-21 16:14] LABS: Hematocrit (blood only) 34.5 % (42.0-52.0); Hemoglobin 11.8 g/dl (14.0-18.0)
--- NOTE | 2023-02-21 17:41 | Hospitalist Progress Note ---
Date of Service February 21, 2023 Assessment & Plan (1) Sepsis: Plan: etiology? bacterial vs viral vs tick-borne vs other thus far blood cx's remain negative but continue empiric broad-spectrum IV abx in the form of zosyn cont doxy for tick-borne infection coverage; add [facility] Spotted Fever testing; repeat a Babesia Smear; repeat H/H to ensure no ongoing decrease which would suggest hemolysis viral pathogens - add EBV/CMV/West Nile Serum IgM/Parvo testing fortunately WBC and CRP are trending down Fever curve also trending down repeat all labs in am due to mild dyspnea repeat 2-view cxr now meningitis/encephalitis not suspected - defer on LP, but low threshold to perform if persistent fevers/illness/worsening headaches/neuro symptoms/etc consider ID consultation if pathogen is not found and/or he fails to improve (2) Abnormal LFTs: Plan: viral? tick-borne? see #1 above liver u/s and CT a/p without GB or biliary tract disease LFTs are improving today repeat LFTs am (3) Insomnia: Plan: melatonin 3mg HS ativan 0.5mg HS (4) Hypertension: Plan: due to prior hypotension from sepsis hold anti-hypertensives cont hydration IV (5) Pre-diabetes: Plan: check an a1c in am (6) Hyperlipidemia: Plan: hold statin due to abnormal LFTs, myalgias, etc CPK checked and found to be normal (7) Hypotension: Plan: 2nd sepsis resolved with copious hydration IV (8) Acute kidney injury: Plan: improved s/p IV fluids hold SEBLE repeat BMP am (9) Acute metabolic encephalopathy: Plan: 2nd sepsis improved supportive care Plan DVT proph - lovenox 40mg daily will need PT/OT evals Admission and Anticipated Discharge Date Admission Date: February 20, 2023 Subjective patient continues with severe fatigue, weakness, poor appetite, fevers/chills myalgias and arthralgias also remain he is 10+ days into his illness patient [place] in [place] area and property [place] several days before falling ill he had been outside chopping wood he recalls getting sick 1-2 days post-Thankskhadarving did have multiple people to his home for the meal no recent travel no obvious sick contacts 1 dog - mainly inside no exotic pets lives with who has been in normal health and w/o infectious symptoms denies any URI symptoms has had shortness of breath with exertion but no cough had diarrhea at home but none thus far here a nephew was at bedside during the visit and he reports his uncle has been a little confused at times Review of Systems Review of Systems: neuro - mild headache only musculo - no neck pain or meningismus ; myalgias/arthralgias but no joint swelling skin - no rashes, no obvious tick bites gen - fevers/chills, severe exhaustion/fatigue cv - no chest pain, no orthopnea GI - no vomiting, no abd pain - no dysuria psych - insomnia x several nights Physical Exam Physical Exam: gen - looks unwell but nontoxic, tired appearing, no acute distress eyes - anicteric mouth - no lesions, no ulcers, no erythema of throat; MMM neck - no lymphadenopathy, no meningismus, no nucchal rigidity heart - RRR, s1 s2 lungs - CTA b/l abd - soft NT ND BS+; no HSM musculo - no joint synovitis upper or lower exts skin - no rash any location; no cellulitis; no tick bites or other arthropod bites ext - no edema, pulses 2+ b/l Results & Data Results & Data Vital Signs (Past 12 Hours) Vital Signs Temp Pulse Pulse Resp BP BP Pulse Ox 02/21/23 16:00 36.5 C 91 H 18 116/74 97 02/21/23 15:46 61 02/21/23 12:17 110/68 106/69 02/21/23 11:13 36.9 C 92 H 18 91/58 L 97 02/21/23 08:22 77 02/21/23 08:03 36.9 C 81 18 91/55 L 97 O2 Del Method 02/21/23 16:00 Room Air 02/21/23 15:46 02/21/23 12:17 02/21/23 11:13 Room Air 02/21/23 08:22 02/21/23 08:03 Room Air Laboratory Results Laboratory Results - last 24 hr 02/20/23 02/21/23 02/21/23 12:52 06:17 15:21 WBC 13.32 H RBC 3.98 L Hgb 11.1 L D 11.8 L Hct 32.6 L 34.5 L MCV 81.9 MCH 27.9 MCHC 34.0 RDW Std Deviation 41.9 RDW Coeff of Usha 14.0 Plt Count 174 MPV 9.8 Immature Gran % (Auto) 0.8 Neut % (Auto) 69.3 Lymph % (Auto) 23.4 [place] % (Auto) 6.0 Eos % (Auto) 0.1 Baso % (Auto) 0.4 Neut # (Auto) 9.24 H Lymph # (Auto) 3.12 [place] # (Auto) 0.80 H Eos # (Auto) 0.01 Baso # (Auto) 0.05 Immature Gran # (Auto) 0.10 Dohle Bodies 1+ Sodium 134 L Potassium 3.5 Chloride 103 Carbon Dioxide 24 Anion Gap 7 BUN 22 Creatinine 1.31 D Est Cr Clr Drug Dosing 73.2 Est GFR ( Amer) 67.2 Est GFR (Non-Af Amer) 57.9 BUN/Creatinine Ratio 16.8 Glucose 109 H Calcium 7.9 L Total Bilirubin 1.2 H Direct Bilirubin 0.5 H AST 58 H ALT 54 H Alkaline Phosphatase 164 H Total Creatine Kinase 187 C-Reactive Protein 14.19 H Total Protein 5.5 L D Albumin 2.9 L Babesia Smear See Comment CMV IgM Ab Pending CMV IgG Ab/TORCH Pending West Nile Virus IgM Ab Pending EBV Capsid Ag IgG Ab Pending EBV Capsid Ag IgM Ab Pending EBV EA Restrict+Diffuse Pending EBV Nuclear Antigen Ab Pending EBV Antibody Interp Pending Monoscreen Negative Parvovirus IgG Ab Index Pending Parvovirus IgM Ab Index Pending Rickettsia IgG Ab Pending Rickettsia IgM Ab Pending Diagnostic Findings blood cx's neg to date PG Care Time/CCT Total # of Minutes Spent Total Time Spent with Patient: Total time spent is greater than 50% in coordination of care (as documented) at patient's floor/unit and/or counseling patient: Coding Level of Care Code 11053 SUB INP/OBS CARE 3/50MIN Diagnoses Sepsis A41.9 Sepsis acute organ dysfunction status: unspecified Sepsis type: sepsis due to unspecified organism Abnormal LFTs R79.89 Insomnia G47.00 Hypertension I10 Pre-diabetes R73.03 Hyperlipidemia E78.5 Hypotension I95.9 Acute kidney injury N17.9 Acute metabolic encephalopathy G93.41 (1) Sepsis Sepsis acute organ dysfunction status: unspecified Sepsis type: sepsis due to unspecified organism Qualified Code(s): A41.9 - Sepsis, unspecified organism
[2023-02-21] MEDS ORDERED: MELATONIN 3 MG TAB PO PRN (19:24)
--- NOTE | 2023-02-21 19:52 | XRay Report ---
XR chest 2V PA/lateral CLINICAL HISTORY: fever, dyspnea; pneumonia? TECHNIQUE: 2 views of the chest were obtained. Comparison: Comparison is made to chest radiograph 02/20/2023 FINDINGS: No lines and tubes are seen. The cardiomediastinal silhouette is normal. The lungs are clear. No evid ence of pleural effusion or pneumothorax. IMPRESSION: No acute abnormalities and in particular no radiographic evidence of pneumonia. ACT 112: Negative or not required by law. Electronically signed by: Jose F Valadez M.D. 02/21/2023 7:50 PM
[2023-02-21] MEDS ORDERED: LORazepam 0.5 MG TAB PO STA (22:39)
[2023-02-21] MEDS: ENOXAPARIN INJ 40 MG/0.4 ML SYR SQ SCH (22:41)
[2023-02-22] MEDS: PIPERACILLIN/TAZOBACTAM 4.5 GM in DEXTROSE 5% MINI-B 100 ML IV SCH ×3 (01:04→17:05)
[2023-02-22 06:53] LABS: Basophils # (auto) 0.04 K/uL (0.00-0.20); Basophils % (auto) 0.4 %; Eosinophils # (auto) 0.06 K/uL (0.00-0.50); Eosinophils % (auto) 0.5 %; Hematocrit (blood only) 32.3 % (42.0-52.0); Immature Granulocytes # (auto) 0.09 K/uL (0.01-0.20); Immature Granulocytes % (auto) 0.8 %; Lymphocytes # (auto) 2.24 K/uL (1.20-3.40); Lymphocytes % (auto) 20.1 %; Mean Corpuscular Hemoglobin 27.8 pg (25.0-34.0); Mean Corpuscular Hgb Conc 34.1 g/dL (32.0-36.0); Mean Corpuscular Volume 81.8 fL (80.0-100.0); Mean Platelet Volume 9.7 fL (9.4-12.4); Monocytes # (auto) 0.66 K/uL (0.11-0.59); Monocytes % (auto) 5.9 %; Neutrophils # (auto) 8.03 K/uL (1.40-6.50); Neutrophils % (auto) 72.3 %; Platelet Count 220 K/uL (130-400); RDW Standard Deviation 41.8 fL (36.4-46.3); Red Blood Count 3.95 M/uL (4.70-6.10); White Blood Count 11.12 K/ul (4.8-10.8)
[2023-02-22 07:14] LABS: BUN Creatinine Ratio 16.9 (10-20); Bilirubin Direct 0.5 mg/dl (0-0.2); Bilirubin,Total 1.4 mg/dl (0.2-1.0); Calcium 8.3 mg/dl (8.6-10.3); Creatinine Clr Calc Pharmacy 81.3 ml/min; Est GFR (African American) 76.2 ml/min; Est GFR (Non-African American) 65.7 ml/min; Potassium 3.6 mmol/L (3.5-5.1); Total Protein 5.8 gm/dl (6.0-8.3)
[2023-02-22] MEDS: ADVANCED PROBIOTIC 1250 MG CAPSULE PO SCH (08:05)
[2023-02-22] MEDS: FAMOTIDINE 20 MG in SYRINGE 3 ML IV SCH (08:05)
[2023-02-22] MEDS: DOXYCYCLINE HYCLATE 100 MG in DEXTROSE 5% MINI-B 100 ML IV SCH (09:44)
[2023-02-22] MEDS: ENOXAPARIN INJ 40 MG/0.4 ML SYR SQ SCH (20:14)
--- NOTE | 2023-02-22 21:02 | Hospitalist Progress Note ---
Date of Service February 22, 2023 Assessment & Plan (1) Sepsis: Plan: improving/resolving suspect viral vs tick-borne infection - latter favored blood cx's negative; if they remain negative thru tomorrow can likely d/c zosyn cont doxy for tick-borne infection coverage; added [facility] Spotted Fever testing Babesia Smear x 2 negative; H/H stable thus hemolysis not suspected viral pathogens - EBV/CMV/West Nile Serum IgM/Parvo testing - all pending fortunately WBC and CRP are trending down nicely no fevers now in nearly 48 hours LFTs improving repeat all labs in am there has been no evidence of pneumonia meningitis/encephalitis not suspected - LP deferred consider ID consultation but hold off today (2) Abnormal LFTs: Plan: viral? tick-borne? see #1 above liver u/s and CT a/p without GB or biliary tract disease LFTs cont to improve repeat LFTs am EBV, CMV, Parvovirus titers pending consider HepA,B,C testing if LFTs cont to remain high (3) Insomnia: Plan: melatonin 3mg HS (4) Hypertension: Plan: anti-hypertensives remain on hold BPs are controlled without them monitor (5) Pre-diabetes: Plan: check an a1c in am (6) Hyperlipidemia: Plan: cont to hold statin due to abnormal LFTs CPK checked and found to be normal (7) Hypotension: Plan: 2nd sepsis resolved with copious hydration IV cont to hold home BP meds (8) Acute kidney injury: Plan: resolved with IV fluids cont to hold SEBLE repeat BMP am stop IV fluids (9) Acute metabolic encephalopathy: Plan: 2nd sepsis resolved Plan DVT proph - lovenox 40mg daily passed PT/OT anabela family updated at bedside progressing nicely Admission and Anticipated Discharge Date Admission Date: February 20, 2023 Subjective feeling much better today no fevers no chills appetite slightly better no diarrhea myalgias/arthralgias resolved no further dyspnea still tired/fatigued but not as severe he is pleased with his progress family at bedside today tele overnight wnl Review of Systems Review of Systems: gen - no fevers or chills cv - no chest pain pulm - no cough or congestion GI - no N/V/D Physical Exam Physical Exam: gen - looks much better today, pleasant, nontoxic mouth - no lesions, no ulcers, no erythema of throat; MMM neck - no JVD heart - RRR, s1 s2, no murmur lungs - CTA b/l abd - soft NT ND BS+; no HSM musculo - no joint synovitis upper or lower exts skin - no rashes ext - no edema, pulses 2+ b/l Results & Data Results & Data Vital Signs (Past 12 Hours) Vital Signs Temp Pulse Pulse Resp BP Pulse Ox O2 Del Method 02/22/23 19:17 36.3 C L 82 16 116/74 97 Room Air 02/22/23 18:00 02/22/23 15:00 77 02/22/23 14:52 36.7 C 73 14 109/67 96 Room Air 02/22/23 10:32 36.4 C L 80 14 101/62 96 Room Air O2 Del Method 02/22/23 19:17 02/22/23 18:00 Room Air 02/22/23 15:00 02/22/23 14:52 02/22/23 10:32 Laboratory Results Laboratory Results - last 24 hr 02/22/23 06:24 WBC 11.12 H RBC 3.95 L Hgb 11.0 L Hct 32.3 L MCV 81.8 MCH 27.8 MCHC 34.1 RDW Std Deviation 41.8 RDW Coeff of Usha 14.0 Plt Count 220 MPV 9.7 Immature Gran % (Auto) 0.8 Neut % (Auto) 72.3 Lymph % (Auto) 20.1 [place] % (Auto) 5.9 Eos % (Auto) 0.5 Baso % (Auto) 0.4 Neut # (Auto) 8.03 H Lymph # (Auto) 2.24 [place] # (Auto) 0.66 H Eos # (Auto) 0.06 Baso # (Auto) 0.04 Immature Gran # (Auto) 0.09 Sodium 133 L Potassium 3.6 Chloride 102 Carbon Dioxide 23 Anion Gap 8 BUN 20 Creatinine 1.18 Est Cr Clr Drug Dosing 81.3 Est GFR ( Amer) 76.2 Est GFR (Non-Af Amer) 65.7 BUN/Creatinine Ratio 16.9 Glucose 106 H Calcium 8.3 L Total Bilirubin 1.4 H Direct Bilirubin 0.5 H AST 55 H ALT 50 Alkaline Phosphatase 167 H Total Protein 5.8 L Albumin 3.0 L Diagnostic Findings blood cx's negative PG Care Time/CCT Total # of Minutes Spent Total Time Spent with Patient: Total time spent is greater than 50% in coordination of care (as documented) at patient's floor/unit and/or counseling patient: Coding Level of Care Code 11199 SUB INP/OBS CARE 2MIN Diagnoses Sepsis A41.9 Sepsis acute organ dysfunction status: unspecified Sepsis type: sepsis due to unspecified organism Abnormal LFTs R79.89 Insomnia G47.00 Hypertension I10 Pre-diabetes R73.03 Hyperlipidemia E78.5 Hypotension I95.9 Acute kidney injury N17.9 Acute metabolic encephalopathy G93.41 (1) Sepsis Sepsis acute organ dysfunction status: unspecified Sepsis type: sepsis due to unspecified organism Qualified Code(s): A41.9 - Sepsis, unspecified organism
[2023-02-23] MEDS: PIPERACILLIN/TAZOBACTAM 4.5 GM in DEXTROSE 5% MINI-B 100 ML IV SCH (00:08)
[2023-02-23 08:22] LABS: Basophils # (auto) 0.04 K/uL (0.00-0.20); Basophils % (auto) 0.5 %; Eosinophils # (auto) 0.12 K/uL (0.00-0.50); Eosinophils % (auto) 1.5 %; Hematocrit (blood only) 33.8 % (42.0-52.0); Hemoglobin 11.5 g/dl (14.0-18.0); Immature Granulocytes # (auto) 0.16 K/uL (0.01-0.20); Lymphocytes # (auto) 2.46 K/uL (1.20-3.40); Lymphocytes % (auto) 30.8 %; Mean Corpuscular Volume 82.2 fL (80.0-100.0); Mean Platelet Volume 9.6 fL (9.4-12.4); Monocytes # (auto) 0.65 K/uL (0.11-0.59); Monocytes % (auto) 8.1 %; Neutrophils # (auto) 4.55 K/uL (1.40-6.50); Neutrophils % (auto) 57.1 %; Platelet Count 234 K/uL (130-400); RDW Standard Deviation 41.8 fL (36.4-46.3); Red Blood Count 4.11 M/uL (4.70-6.10); White Blood Count 7.98 K/ul (4.8-10.8)
[2023-02-23 08:28] LABS: BUN Creatinine Ratio 13.7 (10-20); C Reactive Protein 6.16 mg/dl (0-0.5); Calcium 8.4 mg/dl (8.6-10.3); Creatinine Clr Calc Pharmacy 82.4 ml/min; Est GFR (Non-African American) 66.4 ml/min; Potassium 3.6 mmol/L (3.5-5.1)
[2023-02-23 08:37] LABS: Estimated Average Glucose 131 mg/dl; Hemoglobin A1C 6.2 % (4.5-5.6)
[2023-02-23 08:44] LABS: Albumin Level 3.1 gm/dl (3.4-5.0); Bilirubin Direct 0.3 mg/dl (0-0.2); Bilirubin,Total 1.2 mg/dl (0.2-1.0); Total Protein 6.2 gm/dl (6.0-8.3)
[2023-02-23] MEDS: ADVANCED PROBIOTIC 1250 MG CAPSULE PO SCH (08:57)
[2023-02-23] MEDS ORDERED: FAMOTIDINE 20 MG TAB PO SCH (09:00)
[2023-02-23] MEDS ORDERED: DOXYCYCLINE HYCLATE 100 MG CAP PO SCH (09:00)
--- NOTE | 2023-02-23 15:17 | Infectious Disease Consult ---
Date of Consultation February 23, 2023 Assessment & Plan (1) Fever: (2) Body aches: (3) Sepsis: (4) Elevated transaminase level: (5) Transaminitis: (6) Abnormal LFTs: Plan Ovidio Junior is a 62-year-old man with history of obesity, CKD, and prediabetes, who was sent by his PCP to [facility] on 02/20/23 with 11 days of intermittent fever, chills, body aches, vomiting, diarrhea, and fatigue, with PCP concerned about hypotension 90s/60s, found to have WBC 15, abnormal LFTs (AST 77 ALT 82 Alk phos 244 tbili 1.7). ID is consulted for fevers and concern for infection, including tickborne vs. viral infection. Patient presented with fevers and diffuse body aches for which he had ~11 days of symptoms at home. He rapidly improved while in the hospital (received doxycycline and pip-tazo). Also found to have elevated LFTs which have been improving, as well as MIKO. With leukocytosis (rather than leukopenia) and low- normal plts (jenni 174 on 02/21). BCx NG. WBC has normalized, and patient feels clinically improved. Overall clinical picture is most suggestive of a tickborne infection vs. viral infection. His improvement may be due to the doxycycline or may be from a self- limited process. Still awaiting tickborne testing results but thus far with negative Anaplasma and Babesia smears; awaiting PCR. Can also send Anaplasma and Ehrlichia serologies; if negative then could repeat in 3-4 weeks to evaluate for convalesence. Considered leptospirosis given that patient has noted rodents in his home (present sporadically in [place] wildlife); without classical pulmonary/rash/conjunctival findings but could present with nonspecific febrile illness and myalgiasleptospirosis would be covered by doxycycline as well. 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 [place] 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 Lower suspicion at this time for typical bacterial infection. BCx NG, CT A/P without acute findings, CXR clear. However, given diagnostic uncertainty have provided patient with close return precautions, including to return if any fevers, recurrence of severe body aches, chills, or any other new and concerning symptoms; patient voiced understanding of this. He should have close follow-up with PCP. Suggest repeat CBC w/ diff and CMP in ~1 week. ID Problem List: 1.Fevers, chills, night sweats, myalgias 2.Leukocytosis 3.Abnormal LFTs 4.Concern for sepsis Recommendations: - Can continue doxycycline 100 mg PO BID to complete a 10-day course (02/20- 03/01/23) - Ensure close PCP follow-up. Provided patient with return precaution counseling - Suggest repeat CBC w/ diff and CMP in ~1 week - Send Anapalsma serologies, Ehrlichia serologies. If negative serologies, could consider repeating Anaplasma/Ehrlichia serologies in ~3-4 weeks - Can also send HIV, HSV-1/2 PCR, VZV PCR, leptospira blood PCR, leptospira urine PCR, and leptospira Ab - Follow pending studies until finalized: Anaplasma PCR, Babesia PCR, Ehrlichia PCR, Rickettsia Ab, Typhus fever Ab, Q fever Ab, Parvovirus Ab, CMV Ab, EBV Ab, WNV Ab, RMSF Ab Plan discussed with hospitalist. Thank you for letting ID participate in the care of this patient. The patient will likely discharge today. ID will sign off at this time. If questions, please [facility] at [phone]. Noreen Ruiz MD, S Infectious Diseases [facility]/ID Connect ID Connect direct line: [phone] Consultation Information Consultation was provided via telemedicine using two-way real-time interactive telecommunication between the patient and the telemedicine provider. For the duration of the visit, the provider was performing the assessment from a different facility than the patient. This includesuse of bluetooth stethoscope forauscultationperformed by the telepresenter that the telemedicine provider can hear if described in the physical exam. [facility] contact information: Please call ID Connect Call Center . (Phone Number For Physician Use Only) After establishing a telemedicine visit, patient was: Patient was verified with two unique identifiers, Patient/authorized rep acknowledged consent and understanding and Gave permission to continue telehealth session Time Spent with Patient: Initial => 75 min History of Present Illness Reason for Consultation: fevers Attending Physician: Toni Leal MD History of Present Illness Ovidio Junior is a 62-year-old man with history of obesity, CKD, and prediabetes, who was sent by his PCP to [facility] on 02/20/23 with 11 days of intermittent fever, chills, body aches, vomiting, diarrhea, and fatigue, with PCP concerned about hypotension 90s/60s, found to have WBC 15, abnormal LFTs (AST 77 ALT 82 Alk phos 244 tbili 1.7). ID is consulted for fevers and concern for infection, including tickborne vs. viral infection. For the past 11 days, the patient has had fever, chills, body aches, vomiting, diarrhea, and fatigue, and reported that says he has "never felt so bad in his life". The fevers were twice daily despite taking Tylenol and ibuprofen, and he also had night sweats. He experienced headache, generalized body aches, one episode of vomiting on Monday morning 02/18, nausea, poor PO intake. He has also reported loose stools over the past few days. No abdominal pain, sore throat, URI symptoms, chest pain, cough, shortness of breath, or rashes. He reports that he was feeling very healthy and in his USOH prior to symptom onset. No sick contacts. No recent travel. 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 He has not noticed any tick or insect bites recently. He uses chewing tobacco, denies smoking or other recreational substance use. No recent antibiotics, no immunosuppressive medications. [place] [address] [place]. 10 years ago, traveled to [place]; 20 years ago to [place], no other travel outside of the country. Lives with and 33-year-old. No exposure to young children. Has a dog, though they seldom have ticks. No other exposure to animals, no wild animals/farm animals/birds. No raw meat/fish or game meat. Has not done outdoor activities since early summer. 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 No history of STIs and no other sexual partners aside from his . He does notice wild rodents/mice in the house every winter, though was not aware of touching any rodent droppings/urine. In the ED, TMax 38.5. WBC 15.61. Procal 2.73. ESR 71 CRP 25.86. Respiratory viral panel neg. 02/20 UA: 2+ protein 1+ blood 1+ bilirubin, +urobiliogen. 1-5 WBCs, 0-4 RBCs, 10-20 epis. He was started on doxycycline and pip-tazo. His WBC has improved from 16 -> 8. AST 77 ALT 82 Alk phos 244 tbili 1.7 which have improved. CRP 26 - > 6. At the time of evaluation, he reports feeling much better, with some remaining fatigue but feels that all of his symptoms have nearly resolved. Allergies Allergy/AdvReac Type Severity Reaction Status Date / Time No Known Drug Allergies Allergy Verified 02/20/23 11:00 Home Medications Medication Instructions Recorded Confirmed Type atorvastatin 40 mg tablet 40 mg PO QAM 08/10/22 02/20/23 History benazepril 10 1 tab PO QAM #90 tabs 01/26/23 02/20/23 Rx mg-hydrochlorothiazide 12.5 mg tablet sildenafil 100 mg tablet 100 mg PO ONCE PRN sexual activity 01/26/23 02/20/23 Rx #10 tabs Patient History Medical History Encounter for pre-operative examination History of colon polyps Sleep apnea MILD/NO DEVICE Sensorineural hearing loss (SNHL) of both ears CKD (chronic kidney disease) PT DENIES Hypertension Hyperlipidemia Erectile dysfunction Chronic throat clearing Allergic rhinitis Lentigines Surgical History Nausea and vomiting after administration of anesthetic agent History of colonoscopy 03/2021 repeat 5 yrs [place] teeth removed History of myringotomy History of tonsillectomy History of vasectomy History of shoulder surgery RT History of inguinal hernia repair Family History Father Hypertension Hyperlipidemia Type 2 diabetes mellitus Acute myocardial infarction Diabetes Grandmother Acute myocardial infarction Grandfather Cancer Mother Hypertension Brother Hypertension Other No family history of adverse response to anesthesia No family history of bleeding disorder Ovarian cancer Denies family history of Prostate cancer Myocardial infarction Breast cancer Colorectal cancer Stroke Social History Smoking Status: Never smoker Tobacco Type: Smokeless Tobacco (Dip or Chew) Second Hand Exposure: No; Do You Dip or Chew Tobacco: Yes; Hx Alcohol Use: Yes Alcohol type: beer Alcohol Intake Frequency Comment: weekends Hx Substance Use: No Preferred Language: Slovenian Communication Ability: Effective Visual Impairment: Partially Limited Hearing Ability: Normal Adult High School Instructor Required: No Beliefs That Will Affect Care: None marital status: Current Living Situation: Spouse and Family Current Living Situation Comment: AND SON current occupational status: employed current occupation: Works at [employer] How many Children do You have: 2 Other Information That Helps Us Care for You: No Feels Safe at Home: Yes Safety Concerns: Feels Safe At This Time Childhood Exposure to Second-Hand Smoke: Yes caffeine: Yes (two cups of coffee daily ) Dental Care, Regularly: No Physical Activity Frequency: 3-4 Times per Week Physical Activity Frequency Comment: walks couple times a week Seatbelt Use: always Sunscreen Use: No Assistive Devices: None Physical Exam Physical Exam: Exam obtained with aid of in-person telepresenter. General: Well-appearing, no acute distress HEENT: Conjunctivae non-injected, sclerae anicteric, MMM, OP clear. Neck: No LAD CV: RRR, normal S1/S2; no murmurs, rubs, or gallops. Resp: CTAB; no wheezes, rales, or rhonchi. Respirations nonlabored. Abd: Soft, nontender, nondistended. Normal bowel sounds throughout. No masses or organomegaly. Back: No tenderness to palpation along spine Ext: Warm and well-perfused, no edema. No joint warmth or effusions noted. Skin: No rashes or lesions. Neuro: Alert & interactive. Grossly non-focal. Psych: Pleasant, appropriate. Results & Data Vital Signs (Past 12 Hours) Vital Signs Temp Pulse Pulse Resp BP Pulse Ox O2 Del Method 02/23/23 11:26 36.3 C L 75 16 122/78 97 Room Air 02/23/23 08:33 36.4 C L 78 16 124/76 97 Room Air 02/23/23 07:28 72 Diagnostic Findings Diagnostics: 02/21 CXR: No acute abnormalities and in particular no radiographic evidence of pneumonia. 02/20 Liver US: 1. No acute sonographic abnormality is identified in the right upper quadrant. No gallstones are seen. 2. Hepatomegaly and hepatic steatosis. 02/20 CXR: No active disease in the chest. 02/20 CT A/P: No acute abnormalities. Diverticulosis without diverticulitis. The appendix is normal. Micro Summary: 02/21 CMV Ab pending 02/21 WNV Ab pending 02/21 EBV Ab pending 02/21 Parvovirus Ab pending 02/20 BCx x2 NGTD 02/20 Monospot neg 02/20 Anaplasma smear neg, 02/20 and 02/21 Babesia smear neg 02/20 Anaplasma DNA pending 02/20 Ehrlichia DNA pending 02/20 Babesia PCR pending 02/20 Rickettsia IgG Ab pending, IgM Ab pending 02/20 Typhus fever IgG Ab pending, IgM Ab pending 02/20 Q fever Ab pending 02/20 Lyme IgG Ab neg, IgM Ab neg 02/20 full respiratory viral panel negative Antibiotic Summary: doxycycline (02/20-present) pip-tazo (02/20-02/22)
[2023-02-23 16:48] LABS: Epstein Barr Virus Early Ag Ab <9.00 U/mL
--- NOTE | 2023-02-23 17:19 | Discharge Summary ---
Date of Service February 23, 2023 Admission HPI Per Admitting Provider Ovidio is a 62-year-old male with PMH of HTN, HLD, obesity, prediabetes, and CKD. He presented for intermittent fever, chills, body aches, vomiting, diarrhea, and fatigue that has been worsening over the past 11 days. He was sent in from his PCP for low blood pressure and concern for sepsis; his BP was 91/62 on arrival. Patient reports that he has been having fevers twice daily; taking Tylenol and ibuprofen 800 mg 3 times daily. He reports generalized body aches, and says he has "never felt so bad in his life". He also endorses headache, head pressure, and 1 episode of vomiting on Monday morning 02/18; he has been nauseous ever since. Patient has not been eating or drinking much. No recent travel. Works from home. No sick contacts. No tick bites that he has noticed. He endorses diarrhea over the past several days; no recent antibiotic use; he reports his stool has a soft consistency, but is not liquid-y. Patient has not been taking his normal medications; has not taken BP medication in over a week. He endorses chewing tobacco, but denies smoking, and recreational drug use. He endorses minimal alcohol use; occasionally drinks socially, 2 drinks on the weekends. He exhibits hypertension at 144/91, and mild tachycardia at 110 bpm at time of admission; vitals otherwise stable. ED course: NSS 1000 mL Famotidine 20 mg IV Zofran 4 mg IV ROS: Patient endorses intermittent fevers (2x per day), chills, night-sweats, trouble sleeping, MANCINI, dizziness, lightheadedness, nausea, one episode of vomiting on 02/18, diarrhea, Patient denies sore throat, chest pain, SOB, rashes, burning with urination, or numbness/tingling in the legs. Discharge Exam gen - looks much better today, pleasant, nontoxic mouth - no lesions, no ulcers, no erythema of throat; MMM neck - no JVD heart - RRR, s1 s2, no murmur lungs - CTA b/l abd - soft NT ND BS+; no HSM musculo - no joint synovitis upper or lower exts skin - no rashes ext - no edema, pulses 2+ b/l Discharge Data Allergies Allergy/AdvReac Type Severity Reaction Status Date / Time No Known Drug Allergies Allergy Verified 02/20/23 11:00 Consultations 02/20/23 16:19 ED Decision to Admit Stat 02/23/23 10:28 Consult Infectious Diseases Routine Ordered Studies 02/20/23 14:38 CT abd pelvis IV con only Stat 02/20/23 16:02 US RUQ [US liver] Stat Hospital Course (1) Sepsis: improving/resolving suspect viral vs tick-borne infection - latter favored blood cx's negative; if they remain negative thru tomorrow can likely d/c zosyn cont doxy for tick-borne infection coverage; added [facility] Spotted Fever testing Babesia Smear x 2 negative; H/H stable thus hemolysis not suspected viral pathogens - EBV/CMV/West Nile Serum IgM/Parvo testing - all pending fortunately WBC and CRP are trending down nicely no fevers now in nearly 48 hours LFTs improving repeat all labs in am there has been no evidence of pneumonia meningitis/encephalitis not suspected - LP deferred consider ID consultation but hold off today (2) Abnormal LFTs: viral? tick-borne? see #1 above liver u/s and CT a/p without GB or biliary tract disease LFTs cont to improve repeat LFTs am EBV, CMV, Parvovirus titers pending consider HepA,B,C testing if LFTs cont to remain high (3) Insomnia: melatonin 3mg HS (4) Hypertension: anti-hypertensives remain on hold BPs are controlled without them monitor (5) Pre-diabetes: check an a1c in am (6) Hyperlipidemia: cont to hold statin due to abnormal LFTs CPK checked and found to be normal (7) Hypotension: 2nd sepsis resolved with copious hydration IV cont to hold home BP meds (8) Acute kidney injury: resolved with IV fluids cont to hold SEBLE repeat BMP am stop IV fluids (9) Acute metabolic encephalopathy: 2nd sepsis resolved Plan DVT proph - lovenox 40mg daily passed PT/OT evals family updated at bedside progressing nicely Discharge Plan Discharge Items Patient Disposition: Home - Self-Care Reason For Visit: FLU LIKE SYMPTOMS Discharge Diagnosis: 1. Flu-like illness - either due to a tick-borne infection or viral infection; copious testing still pending 2. Abnormal liver function tests - improving; due to #1 3. Low blood pressure - due to severe dehydration - resolved 4. Sepsis - due to #1 - resolved 5. Small amount of superficial phlebitis of your right elbow area from a recent IV site Activity: As commented below Activity Comment: gradually increase your activities over the next 7-10 days Non-emergency contact: Primary Care Provider Call non-emergency contact if: you have any medication questions, your symptoms worsen and your temperature is above 101 Follow-up/Referrals: Tolu Kilgore DO [Primary Care Provider] - 03/03/23 11:30 am Diet: Regular Addtl Attending Provider Instructions: Mr Junior, You were treated for sepsis and dehydration. Your flu-like illness / sepsis was likely caused by either a tick-borne infection or virus. We did not find evidence of bacterial infection of the bloodstream, pneumonia, COVID-19, urinary tract infection, gall bladder problem, etc. You improved with IV fluids, antibiotics, and supportive care. Your liver tests, high white blood cell count, and other labs all improved with time. An infectious disease doctor saw you in consult and also felt that your illness was likely due to a tick-borne infection or virus. We have dispatched numerous tick studies and viral studies most of which will return by next week. Due to the high suspicion your illness was caused by a tick bite we are sending you home on doxycycline which is the drug of choice for most tick-borne infections. Recommendations - 1. doxycycline 100mg twice daily x 11 days, first dose TONIGHT * occasionally some people have heartburn/stomach upset from doxycycline; you can take [id number] pepcid, prilosec, etc if needed * RARELY some people can get a rash if they spend too much time in the sun while on doxycycline; this should not be a problem given the winter time and the weather 2. ondansetron 4mg every 6 hours as needed for nausea or vomiting 3. HOLD your atorvastatin 4. HOLD your benazepril-hydrochlorothiazide blood pressure medication. You did not receive it the entire hospitalization and your blood pressures have been normal without it. The recent weight loss is the likely reason you are not requiring these blood pressure pills. If you don't have one please purchase a home blood pressure cuff and check your blood pressure daily. If you are getting systolic blood pressures ("top" number) consistently greater than [address] Kilgore know. He likely will recommend resumption of your blood pressure medication. 5. For the small amount of phlebitis near the front of the right elbow - * warm compresses as much as possible for 2-3 days (this helps reduce swelling o f the vein, discomfort, etc) * [id number] ibuprofen 400mg every 8 hours as needed for pain/swelling; just use caution with the ibuprofen because of the doxycycline antibiotic * elevating the arm helps as well * the area of phlebitis is small and should resolve in the next 2-3 days 6. Avoid alcohol for the next 10 days. 7. You likely have another week or 2 of recovery ahead. Gradually increase your activities over the next 7-10 days. Be sure to rest when needed and focus on good nutrition and hydration. 8. Dr Kilgore has blood work ordered for you prior to your next appointment. The labs he previously ordered are the same labs we would have recommended following this hospital stay. Please have your blood work done before you see Dr Kilgore next week. 9. If any of your labs show the cause of this illness I will call you with those results. Return to [facility] if - * you have recurrent fevers over 101 degrees * you have persistent nausea or vomiting * you have abdominal pains * you feel dizzy or lightheaded * you develop severe diarrhea * any other concerns It was our pleasure to care for you! Happy Holidays! Pending Studies at Discharge: Yes Studies:: Numerous tick-borne labs and viral studies Stand-Alone Forms: My [facility], Smoking Cessation Medications and DC Order Prescriptions: New doxycycline hyclate 100 mg Capsule 100 mg PO BID 11 Days Qty: 22 0RF ondansetron 4 mg tablet,disintegrating 4 mg PO Q6H PRN (Reason: nausea and vomiting) Qty: 7 0RF Continued sildenafil 100 mg tablet 100 mg PO ONCE PRN (Reason: sexual activity) Qty: 10 5RF Held benazepril-hydrochlorothiazide 10-12.5 mg tablet 1 tab PO QAM Qty: 90 1RF Hold Instructions: hold unless Dr Kilgore asks you to resume atorvastatin 40 mg tablet 40 mg PO QAM Hold Instructions: hold until your liver tests are repeated and Dr Kilgore says it is ok to resume Rx Instructions: TAKE 1 TABLET AT BEDTIME Discharge Orders: Discharge Order (Routine); Ordered 02/23/23 Ordered By: Toni Latif/Other Patient Handouts: Prediabetes, 5 Steps for Eating Healthier Admission Data Admit Date/Time: 02/20/23 17:13 Attending Provider: Toni Leal Admit Provider: Toni Yates Primary Care Provider: Tolu Kilgore Other Providers: Toni Yates; Gaby Davis; Murray Cisneros; Itzel Gastelum; Neo Villar; Betsy Garcia; Millie Aldridge; Yudy Feliciano; Britney Silver; Valeri Cruz; Noreen Ruiz Coding Diagnoses Sepsis A41.9 Sepsis acute organ dysfunction status: unspecified Sepsis type: sepsis due to unspecified organism Abnormal LFTs R79.89 Insomnia G47.00 Hypertension I10 Pre-diabetes R73.03 Hyperlipidemia E78.5 Hypotension I95.9 Acute kidney injury N17.9 Acute metabolic encephalopathy G93.41
[2023-02-24 09:09] LABS: Ehrlichia chaff DNA Bld Negative (Negative)
[2023-02-24 14:17] LABS: Babesia microti DNA Not Detected (Not Detected)
[2023-02-25 00:32] LABS: RMSF IgG Ab Not Detected (Not Detected); RMSF IgM Ab Detected (Not Detected)
[2023-02-27 17:07] LABS: HSV Type 1 DNA Not Detected (Not Detected); HSV Type 1&2 DNA Source Whole Blood; HSV Type 2 DNA Not Detected (Not Detected); VZ DNA Source Whole Blood; Varicella Zoster Virus DNA PCR Not Detected (Not Detected)
[2023-02-27 22:31] LABS: CMV IgG Antibody <0.60 U/mL; CMV IgM Antibody <30.00 AU/mL; Parvovirus IgG 5.2 (<0.9); Parvovirus IgM 0.6 (<0.9)
[2023-02-28 10:05] LABS: Reference Quest Test 1 REPORT
[2023-02-28 18:08] LABS: Q Fever IgG, Phase I NEGATIVE; Q Fever Phase I IgM Antibody NEGATIVE; Q Fever Phase II IgG Antibody NEGATIVE; Q Fever Phase II IgM Antibody NEGATIVE; R. typhi IgG Ab DETECTED; R. typhi IgM Ab DETECTED; RMSF IgG Ab NOT DETECTED; RMSF IgM Ab DETECTED
== END 2023-02-23 18:39 | disposition home or self-care (01) | DRG 871 ==
LOC: ED 11:50 → SUATTDRO 17:13 → EDINP 17:13 → 2N 02-21 00:05